=== PATIENT | female | born 1955 | race Caucasian/White ===

== ENCOUNTER 2021-03-01 18:53 | Observation (INO) | payer OTHER ==
[~2021-03-01] VITALS: Ht 154.9 cm; Wt 82.6 kg
[2021-03-01] MEDS ORDERED: DEMADEX 20 MG T20 MG PO (21:41)
[2021-03-01] MEDS ORDERED: ZAROXOLYN/DIULO5 MG PO (21:42)
[2021-03-01] MEDS ORDERED: LEVOTHYROXINE125 MCG PO (21:42)
[2021-03-01] MEDS ORDERED: XANAX 0.25 MG0.25 MG PO (21:43)
[2021-03-01] MEDS ORDERED: CYMBALTA60 MG PO (21:45)
[2021-03-01] MEDS ORDERED: HYDROCODON-ACE1 EAC2 PO (21:46)
[2021-03-01] MEDS ORDERED: PROTONIX 40 MG40 M1 PO (21:46)
[2021-03-01] MEDS ORDERED: GABAPENTIN800 MG PO (21:46)
[2021-03-01] MEDS ORDERED: MONTELUKAST SOD10 MG PO (21:47)
[2021-03-01] MEDS ORDERED: ENTRESTO 24 MG1 EACH PO (21:47)
[2021-03-01] MEDS ORDERED: ATORVASTATIN CA40 MG PO (21:47)
[2021-03-01] MEDS ORDERED: LANTUS SOL100 UNIT/1 SQ (21:48)
[2021-03-01] MEDS ORDERED: WELLBUTRIN SR150 M1 PO (21:48)
[2021-03-01] MEDS ORDERED: ISOSORBIDE MONO60 MG PO (21:49)
[2021-03-01] MEDS ORDERED: METOPROLOL SUCC25 MG PO (21:50)
[2021-03-01] MEDS ORDERED: ASPIRIN EC81 MG PO (21:50)
[2021-03-01] MEDS ORDERED: EFFIENT10 MG PO (21:51)
[2021-03-02 02:31] LABS: HEMOGLOBIN 10.6 gm/dl (12.3-15.3); RED BLOOD COUNT 3.62 M/UL (4.00-5.10); WHITE BLOOD COUNT 6.6 K/UL (4.5-11.0)
[2021-03-02 02:48] LABS: BUN/CREATININE RATIO 73 (0-10)
[2021-03-03 03:04] LABS: HEMOGLOBIN 10.9 gm/dl (12.3-15.3); RED BLOOD COUNT 3.7 M/UL (4.00-5.10); WHITE BLOOD COUNT 6.5 K/UL (4.5-11.0)
[2021-03-03] MEDS ORDERED: DEMADEX 20 MG T20 MG PO (10:53)
== END 2021-03-03 15:50 | disposition home or self-care (01) ==
LOC: M/S 18:53
PROVIDERS: Internal Medicine; ADMIT Internal Medicine
DX: K52.9 Noninfective gastroenteritis and colitis, unspecified (principal); N17.9 Acute kidney failure, unspecified; E87.2 Acidosis; E87.1 Hypo-osmolality and hyponatremia; E86.0 Dehydration; I25.10 Atherosclerotic heart disease of native coronary artery without angina pectoris; J44.9 Chronic obstructive pulmonary disease, unspecified; E11.40 Type 2 diabetes mellitus with diabetic neuropathy, unspecified; G89.29 Other chronic pain; E03.9 Hypothyroidism, unspecified; I11.0 Hypertensive heart disease with heart failure; I50.22 Chronic systolic (congestive) heart failure; K21.9 Gastro-esophageal reflux disease without esophagitis; N32.89 Other specified disorders of bladder; J91.8 Pleural effusion in other conditions classified elsewhere; I25.5 Ischemic cardiomyopathy; F41.9 Anxiety disorder, unspecified; F32.9 Major depressive disorder, single episode, unspecified; E66.9 Obesity, unspecified; Z68.34 Body mass index [BMI] 34.0-34.9, adult; Z20.822 Contact with and (suspected) exposure to COVID-19; Z95.1 Presence of aortocoronary bypass graft; Z95.5 Presence of coronary angioplasty implant and graft; Z90.49 Acquired absence of other specified parts of digestive tract; Z87.891 Personal history of nicotine dependence; Z88.8 Allergy status to other drugs, medicaments and biological substances; Z79.82 Long term (current) use of aspirin; Z79.891 Long term (current) use of opiate analgesic; Z79.4 Long term (current) use of insulin; Z79.899 Other long term (current) drug therapy
CPT/HCPCS: 36415; 80048; 82550; 82553; 82570; 82962; 83605; 83631; 83735; 83930; 83935; 84100; 84300; 84484; 85025; 85027; 86140; 93005; 96372; 96374; 96376; C9113; G0378; G0379; J1650; J2405; J7120

== ENCOUNTER → 2022-03-05 | Outpatient (CLI) | payer OTHER ==
[~2022-03-05] MED LIST: ASPIRIN EC81 MG PO; ATORVASTATIN CA40 MG PO; CYMBALTA60 MG PO; DEMADEX 20 MG T20 MG PO; EFFIENT10 MG PO; ENTRESTO 24 MG1 EACH PO; GABAPENTIN800 MG PO; HYDROCODON-ACE1 EAC2 PO; ISOSORBIDE MONO60 MG PO; LANTUS SOL100 UNIT/1 SQ; LEVOTHYROXINE125 MCG PO; METOPROLOL SUCC25 MG PO; MONTELUKAST SOD10 MG PO; PROTONIX 40 MG40 M1 PO; WELLBUTRIN SR150 M1 PO; XANAX 0.25 MG0.25 MG PO; ZAROXOLYN/DIULO5 MG PO
== END ==
LOC: HEART 5 12:50
DX: I25.5 Ischemic cardiomyopathy (principal); I42.0 Dilated cardiomyopathy; I25.10 Atherosclerotic heart disease of native coronary artery without angina pectoris
CPT/HCPCS: 78472; A9560

== ENCOUNTER 2022-05-28 11:48 | Inpatient (IN) | payer OTHER ==
[~2022-05-28] VITALS: Ht 152.4 cm; Wt 83.0 kg
[~2022-05-28 11:48] MED LIST changes: +ATORVASTATIN CA10 MG PO; -ATORVASTATIN CA40 MG PO
[2022-05-28] MEDS ORDERED: TORSEMIDE20 MG PO (17:55)
[2022-05-28] MEDS ORDERED: ALLOPURINOL100 MG PO (17:55)
[2022-05-28] MEDS ORDERED: JARDIANCE25 MG PO (17:56)
[2022-05-28] MEDS ORDERED: DICYCLOMINE HCL10 MG PO (17:56)
[2022-05-28] MEDS ORDERED: NOVOLOG FL100 UNIT/1 SQ (17:56)
[2022-05-28] MEDS ORDERED: METOCLOPRAMIDE H5 MG PO (17:57)
[2022-05-28] MEDS ORDERED: MELATONIN5 M2 PO (17:58)
[2022-05-28 19:09] LABS: HEMOGLOBIN 11.6 gm/dl (12.3-15.3); RED BLOOD COUNT 3.81 M/UL (4.00-5.10)
[2022-05-29 05:41] LABS: HEMOGLOBIN 10.8 gm/dl (12.3-15.3); RED BLOOD COUNT 3.6 M/UL (4.00-5.10); WHITE BLOOD COUNT 8.2 K/UL (4.5-11.0)
[2022-05-30 04:21] LABS: HEMOGLOBIN 10.9 gm/dl (12.3-15.3); RED BLOOD COUNT 3.64 M/UL (4.00-5.10); WHITE BLOOD COUNT 7.3 K/UL (4.5-11.0)
[2022-05-30 07:12] LABS: HEMOGLOBIN A1C 8.4 % (4.8-5.6)
[2022-05-31 05:03] LABS: HEMOGLOBIN 10.4 gm/dl (12.3-15.3); RED BLOOD COUNT 3.43 M/UL (4.00-5.10)
[2022-05-31 05:13] LABS: WHITE BLOOD COUNT 9.3 K/UL (4.5-11.0)
[2022-06-01 02:21] LABS: HEMOGLOBIN 9.8 gm/dl (12.3-15.3); RED BLOOD COUNT 3.24 M/UL (4.00-5.10); WHITE BLOOD COUNT 7.7 K/UL (4.5-11.0)
[2022-06-02 03:08] LABS: HEMOGLOBIN 9.9 gm/dl (12.3-15.3); RED BLOOD COUNT 3.29 M/UL (4.00-5.10); WHITE BLOOD COUNT 7.7 K/UL (4.5-11.0)
[2022-06-02 03:26] LABS: BUN/CREATININE RATIO 50 (0-10)
[2022-06-03 02:56] LABS: HEMOGLOBIN 9.9 gm/dl (12.3-15.3); RED BLOOD COUNT 3.27 M/UL (4.00-5.10); WHITE BLOOD COUNT 9.1 K/UL (4.5-11.0)
[2022-06-04 03:30] LABS: HEMOGLOBIN 9.8 gm/dl (12.3-15.3); RED BLOOD COUNT 3.18 M/UL (4.00-5.10); WHITE BLOOD COUNT 7.8 K/UL (4.5-11.0)
[2022-06-05 07:08] LABS: HEMOGLOBIN 9.9 gm/dl (12.3-15.3); RED BLOOD COUNT 3.29 M/UL (4.00-5.10); WHITE BLOOD COUNT 7.3 K/UL (4.5-11.0)
[2022-06-05 07:37] LABS: BUN/CREATININE RATIO 55 (0-10)
[2022-06-06 03:29] LABS: BUN/CREATININE RATIO 59 (0-10)
[2022-06-07 03:23] LABS: BUN/CREATININE RATIO 61 (0-10)
[2022-06-07] MEDS ORDERED: GABAPENTIN300 MG PO (11:09)
[2022-06-07] MEDS ORDERED: ACETAMINOPHEN325 MG PO (11:09)
[2022-06-07] MEDS ORDERED: INVANZ 1 GM VIAL1 GM IV (11:09)
[2022-06-07] MEDS ORDERED: STIMULANT LAXA1 EACH PO (11:09)
[2022-06-07] MEDS ORDERED: HYDROCODON-ACE1 EAC2 PO (11:09)
[2022-06-07] MEDS ORDERED: HUMALOG 10100 UNITS/ SC (11:09)
[2022-06-07] MEDS ORDERED: TORSEMIDE20 MG PO (11:09)
[2022-06-07] MEDS ORDERED: XANAX 0.25 MG0.25 MG PO (11:11)
== END 2022-06-07 16:25 | DRG 617 ==
LOC: M/S 17:22
PROVIDERS: Internal Medicine; Internal Medicine Infectious Disease; Podiatrist Foot & Ankle Surgery; ADMIT Internal Medicine
PROC: 0Y6M0Z9 Detachment at Right Foot, Partial 1st Ray, Open Approach (ICD-10-PCS; principal; 2022-05-30 11:45)
DX: E11.69 Type 2 diabetes mellitus with other specified complication (principal); Z20.822 Contact with and (suspected) exposure to COVID-19; I13.0 Hypertensive heart and chronic kidney disease with heart failure and stage 1 through stage 4 chronic kidney disease, or unspecified chronic kidney disease; L97.518 Non-pressure chronic ulcer of other part of right foot with other specified severity; M86.8X7 Other osteomyelitis, ankle and foot; I50.32 Chronic diastolic (congestive) heart failure; E03.9 Hypothyroidism, unspecified; I25.10 Atherosclerotic heart disease of native coronary artery without angina pectoris; K21.9 Gastro-esophageal reflux disease without esophagitis; I35.0 Nonrheumatic aortic (valve) stenosis; I27.20 Pulmonary hypertension, unspecified; N17.9 Acute kidney failure, unspecified; F41.9 Anxiety disorder, unspecified; E11.43 Type 2 diabetes mellitus with diabetic autonomic (poly)neuropathy; K31.84 Gastroparesis; E87.5 Hyperkalemia; N18.30 Chronic kidney disease, stage 3 unspecified; H91.93 Unspecified hearing loss, bilateral; H35.30 Unspecified macular degeneration; E88.09 Other disorders of plasma-protein metabolism, not elsewhere classified; H54.62 Unqualified visual loss, left eye, normal vision right eye; E66.9 Obesity, unspecified; E11.649 Type 2 diabetes mellitus with hypoglycemia without coma; E11.40 Type 2 diabetes mellitus with diabetic neuropathy, unspecified; M10.9 Gout, unspecified; E11.621 Type 2 diabetes mellitus with foot ulcer; E11.22 Type 2 diabetes mellitus with diabetic chronic kidney disease; Z79.4 Long term (current) use of insulin; Z95.1 Presence of aortocoronary bypass graft; Z79.01 Long term (current) use of anticoagulants; Z79.82 Long term (current) use of aspirin; Z90.49 Acquired absence of other specified parts of digestive tract; Z83.3 Family history of diabetes mellitus; Z82.49 Family history of ischemic heart disease and other diseases of the circulatory system; Z95.810 Presence of automatic (implantable) cardiac defibrillator; Z87.891 Personal history of nicotine dependence; Z95.5 Presence of coronary angioplasty implant and graft; Z68.35 Body mass index [BMI] 35.0-35.9, adult
CPT/HCPCS: ECHO; 36415; 80048; 80053; 80202; 82550; 82553; 82607; 82962; 83036; 83540; 83550; 83605; 83735; 83880; 84100; 84484; 85025; 85027; 85652; 86140; 87040; 87070; 87205; 93005; 93306; 97110; 97110-GP-CQ; 97161; 97166; 97530; 97530-GP-CQ; C1751; J0690; J0696; J1100; J1335; J1650; J1885; J2001; J2250; J2270; J2405; J2543; J2704; J2795; J3010; J3370; J7070